=== PATIENT | female | born 1965 | race American Indian/Alaskan Native ===

== ENCOUNTER 2018-01-06 15:03 | Emergency (ER) | payer MEDICAID ==
[2018-01-06] MEDS ORDERED: DELTASONE PO ONE (16:13)
[2018-01-06] MEDS ORDERED: DUONEB *Not for PRN Use IH ONE (16:13)
[2018-01-06] MEDS ORDERED: TESSALON PERLES PO ONE (16:13)
--- NOTE | 2018-01-06 16:15 | Emergency Department Report ---
Chief Complaint: Upper Respiratory Infection Stated Complaint: COUGH/CHEST PAIN Time Seen by Provider: 01/06/18 16:03 - HPI History of Present Illness: 52-year-old [place] female presents the emergency department with a one-day history of nasal congestion, wheezing, coughing and some shortness of breath. She has a history of hypertension and asthma. She does not have any inhaler at home she has not taken anything for her symptoms prior to presentation. No recent travel or sick contacts at home. She denies any tobacco use. - ROS Review of Systems: Positive for shortness of breath, wheezing, coughing, nasal congestion Negative for fever, back pain, diaphoresis - Exam Vital Signs: Vital Signs 01/06/18 15:11 Temperature 98.5 F Pulse Rate 74 Respiratory 20 Rate O2 Sat by Pulse 100 Oximetry Physical Exam: Patient has mild to moderate wheezing throughout the chest but no tachypnea or accessory muscle use. A bronchospastic cough heard during examination. She is not in any respiratory distress. MSE screening note: Focused history and physical exam performed. Due to findings the following was ordered: Patient will get Tessalon Perles, prednisone, DuoNeb. I have ordered a two- view chest x-ray ED Disposition for MSE Condition: Stable
--- NOTE | 2018-01-06 16:19 | Emergency Department Report ---
Minor Respiratory - HPI Chief Complaint: Upper Respiratory Infection Stated Complaint: COUGH/CHEST PAIN Time Seen by Provider: 01/06/18 16:03 Duration: 1 Day Pain Location: Chest Severity: mild Minor Respiratory: Yes Able to Tolerate Fluids, Yes Cough, Yes Chest Pain (W WHEEZING), Yes Shortness of Breath (W WHEEZING), No Rhinorrhea, No Sore Throat, No Ear Pain, No Sick Contacts, No Hemoptysis, No Fever Other History: NO PURULENT SPUTUM. NO FEVER ED Review of Systems ROS: Stated complaint: COUGH/CHEST PAIN Other details as noted in HPI Comment: All other systems reviewed and negative Constitutional: denies: chills, fever Eyes: denies: eye pain ENT: denies: ear pain, throat pain Respiratory: cough. denies: orthopnea, shortness of breath (WHEN WHEEZING), SOB with exertion, SOB at rest, stridor, wheezing Cardiovascular: chest pain (WITH WHEEZING). denies: palpitations, orthopnea, edema, syncope Endocrine: denies: excessive sweating, flushing, intolerance to cold, intolerance to heat Gastrointestinal: denies: abdominal pain, nausea, vomiting Genitourinary: denies: urgency, dysuria Musculoskeletal: denies: back pain Skin: denies: rash, lesions Neurological: denies: headache, weakness Psychiatric: denies: anxiety, depression Hematological/Lymphatic: denies: easy bleeding ED Past Medical Hx - Past Medical History Hx Hypertension: Yes Hx Asthma: Yes - Surgical History Past Surgical History?: No - Social History Smoking Status: Current Every Day Smoker Substance Use Type: None - Medications Home Medications: Home Medications Medication Instructions Recorded Confirmed Last Taken Type Albuterol Sulfate [Ventolin HFA] 2 puff IH Q4H PRN #1 hfa.aer.ad 01/06/18 Unknown Rx Benzonatate [Tessalon Perles] 100 mg PO Q8HR PRN #20 capsule 01/06/18 Unknown Rx Fluticasone [Flonase] 1 spray NS QDAY #1 bottle 01/06/18 Unknown Rx predniSONE [Deltasone] 50 mg PO QDAY #5 tab 01/06/18 Unknown Rx Minor Respiratory Exam - Exam General: Vital signs noted. No distress. Alert and acting appropriately. HEENT: Yes Moist Mucous Membranes, No Pharyngeal Erythema, No Pharyngeal Exudates, No Rhinorrhea, No Conjuctival Injection, No Frontal Tenderness (NASAL PHONATION), No Maxillary Tenderness Ear: Neither TM Bulge, Neither TM Erythema, Neither EAC Pain, Neither EAC Discharge Neck: Yes Supple, No Adenopathy Lungs: Yes Good Air Exchange, Yes Wheezes (B), No Ronchi, No Stridor, No Cough, No Labored Respirations, No Retractions, No Use of Accessory Muscles Heart: Yes Regular, No Murmur Abdomen: Yes Normal Bowel Sounds, No Tenderness, No Peritoneal Signs Skin: No Rash, No Edema Neurologic: Alert and oriented, no deficits. Musculoskeletal: Unremarkable. ED Course Vital Signs 01/06/18 15:11 Temperature 98.5 F Pulse Rate 74 Respiratory 20 Rate O2 Sat by Pulse 100 Oximetry ED Medical Decision Making - Radiology Data Radiology results: report reviewed, image reviewed - Medical Decision Making NO FEVER NO PURULENT SPUTUM IMPROVED W DUONEB XRAY NO CONSOLIDATION - Differential Diagnosis ASTHMA AE W OR WITHOUT INFECTION Critical care attestation.: If time is entered above; I have spent that time in minutes in the direct care of this critically ill patient, excluding procedure time. ED Disposition Clinical Impression: Asthma with acute exacerbation, URTI (acute upper respiratory infection) Disposition: TO HOME OR SELFCARE Is pt being admited?: No Does the pt Need Aspirin: No Condition: Stable Instructions: Asthma (ED), Asthma in Children (ED) Additional Instructions: REST HYDRATE WELL MEDS ORDERED ACTIVITY TOLERATED FOLLOW UP WITH PCP THIS WEEK AVOID ASTHMA TRIGGERS. Prescriptions: Albuterol Sulfate [Ventolin HFA] 2 puff IH Q4H PRN #1 hfa.aer.ad PRN Reason: Shortness Of Breath Benzonatate [Tessalon Perles] 100 mg PO Q8HR PRN #20 capsule PRN Reason: Cough Fluticasone [Flonase] 1 spray NS QDAY #1 bottle predniSONE [Deltasone] 50 mg PO QDAY #5 tab Referrals: PRIMARY CAREMD [Primary Care Provider] - 3-5 Days JALEEL NICHOLAS MD [Referring] - 3-5 Days Time of Disposition: 17:02
--- NOTE | 2018-01-06 16:45 | XRay Report ---
FINAL REPORT EXAM: XR CHEST ROUTINE 2V HISTORY: cough COMPARISON: None. TECHNIQUE: Frontal and lateral views of the chest. FINDINGS: The cardiomediastinal silhouette is normal in appearance. The lungs are clear without focal consolidation. There is no pleural effusion or pneumothorax. There is no acute soft tissue or osseous abnormality. IMPRESSION: No acute cardiopulmonary disease.
== END 2018-01-06 17:47 | disposition home or self-care (01) ==
LOC: ED 15:03
DX: J45.901 Unspecified asthma with (acute) exacerbation (principal); J06.9 Acute upper respiratory infection, unspecified; I10 Essential (primary) hypertension; J45.909 Unspecified asthma, uncomplicated; F17.200 Nicotine dependence, unspecified, uncomplicated
CPT/HCPCS: 71046; 94640; 99283; J7512